=== PATIENT | female | born 1995 | race African-American/Black ===

== ENCOUNTER 2016-04-12 04:34 | Emergency (ER) ==
[2016-04-12 04:48] VITALS: BP 116/70; TEMP 97.5; BMI 23.6
--- NOTE | 2016-04-12 05:08 | ED.PDOC ---
General ED Provider: Dr. AVIS COHEN Chief Complaint: Rectal Pain Stated Complaint: c/o rectal pain, has h/o hemorrhoids. bleeds some time, Time Seen by Physician: 05:07 Mode of Arrival: Walk-In Information Source: Patient Primary Care Provider: MYLENE PIEDRA Nursing and Triage Documentation Reviewed and Agree: Yes GI Complaint Exam - Rectal Complaint/Exam Patient Complains of: Reports: Rectal pain Symptoms Are: Still present Timing: Constant Episodes Lasting: Hours Initial Severity: Moderate Current Severity: Moderate Location: Reports: Rectal Character: Reports: Dull Aggravating: Reports: Bowel movement, Sitting Alleviating: Reports: None Associated Signs and Symptoms: Reports: Blood-streaked stool. Denies: Rectal bleeding, Black tarry stool, Bright red blood w/ stool, Blood without stool Related History: Reports: Similar episode Related Surgical History: Reports: None Rectal Exam: Present: External hemorrhoids, Tenderness Differential Diagnoses: Hemorrhoids Review of Systems - Review Of Systems Constitutional: Reports: No symptoms Eyes: Reports: No symptoms Ears, Nose, Mouth, Throat: Reports: No symptoms Respiratory: Reports: No symptoms Cardiac: Reports: No symptoms GI: Reports: Rectal bleeding : Reports: No symptoms Musculoskeletal: Reports: No symptoms Skin: Reports: No symptoms Neurological: Reports: No symptoms Endocrine: Reports: No symptoms Hematologic/Lymphatic: Reports: No symptoms All Other Systems: Reviewed and Negative Past Medical History - Past Medical History Previously Healthy: Yes Endocrine: Reports: None Cardiovascular: Reports: None Respiratory: Reports: None Hematological: Reports: None Gastrointestinal: Reports: None Genitourinary: Reports: None Neuro/Psych: Reports: None Musculoskeletal: Reports: None Cancer: Reports: None Last Menstrual Period: 04/05/16 - Surgical History General Surgical History: Reports: Unknown - Family History Family History: Reports: Unknown - Social History Smoking Status: Current every day smoker Smoking Cessation Counseling Time: > 3 min - 10 min Hx Substance Use: No Alcohol Screening: None - Immunizations Tetanus Shot up to Date: Yes Physical Exam - Physical Exam Appearance: Well-appearing, No pain distress, Well-nourished Eyes: MARIO, EOMI, Conjunctiva clear ENT: Ears normal, Nose normal, Oropharynx normal Respiratory: Airway patent, Breath sounds clear, Breath sounds equal, Respirations nonlabored Cardiovascular: RRR, Pulses normal, No rub, No murmur GI/: Soft, Nontender, No masses, Bowel sounds normal, No Organomegaly Musculoskeletal: Normal strength, ROM intact, No edema, No calf tenderness Skin: Warm, Dry, Normal color Neurological: Sensation intact, Motor intact, Reflexes intact, Cranial nerves intact, Alert, Oriented Psychiatric: Affect appropriate, Mood appropriate Critical Care Note - Critical Care Note Total Time (mins): 0 Course - Course Vital Signs: Temp Pulse Resp BP Pulse Ox 04/12/16 04:35 97.5 F L 91 H 20 116/70 97 Departure - Departure Time of Disposition: 05:13 Disposition: HOME SELF-CARE Discharge Problem: Hemorrhoids Qualifiers: Hemorrhoid type: first degree Qualifier Code: (K64.0) First degree hemorrhoids Instructions: Hemorrhoids (ED) Condition: Stable Pt referred to PMD for follow-up: Yes Additional Instructions: REST INCREASE HYDRATION IF THE PAIN AND SWELLING GETS WORSE NEEDS TO COME BACK. Prescriptions: Cephalexin [Keflex] 500 mg PO Q12HR #20 capsule Hydrocortisone [Anusol-Hc] 30 gm RC TID #20 cream..g. Allergies/Adverse Reactions: Allergies Penicillins Adverse Reaction (Verified 04/12/16 04:45) Home Medications: Ambulatory Orders Cephalexin [Keflex] 500 mg PO Q12HR #20 capsule 04/12/16 Hydrocortisone [Anusol-Hc] 30 gm RC TID #20 cream..g. 04/12/16 Disposition Discussed With: Patient, Family
[2016-04-12] MEDS ORDERED: TORADOL IM STA (05:14)
== END 2016-04-12 05:40 | disposition home or self-care (01) ==
LOC: ED 04:34
DX: K64.0 First degree hemorrhoids (principal); F17.210 Nicotine dependence, cigarettes, uncomplicated
CPT/HCPCS: 96372; 99282

== ENCOUNTER 2018-03-18 12:50 | Emergency (ER) | payer OTHER ==
[2018-03-18 13:05] VITALS: BP 121/69; TEMP 98; BMI 22.8
[2018-03-18 15:40] LABS: URINE PREGNANCY TEST NEGATIVE (NEGATIVE)
--- NOTE | 2018-03-18 16:11 | US ---
EXAM: Bilateral lower extremity venous Doppler History: Bilateral lower extremity pain and edema. Technique: Multiple sonographic images through the bilateral lower extremities were obtained. Color duplex Doppler was used to interrogate vascular flow. Findings: The bilateral common femoral, greater saphenous, profunda, superficial femoral, popliteal, peroneal, posterior tibial and anterior tibial veins demonstrate spontaneous flow with normal compression and n ormal augmentation. Incidental benign left inguinal lymph node with fatty hilum. Impression: No sonographic evidence for deep venous thrombosis
--- NOTE | 2018-03-18 16:26 | CT ---
EXAM: CT of the lumbar spine without contrast History: Lower back pain and bilateral leg cramping. Technique: Multiplanar CT images through the lumbar spine were obtained without the administration o f IV contrast Findings: No acute fracture or subluxation of the lumbar spine. Disc space heights are preserved. Bony spinal canal is not compromised. No significant bony neural foraminal narrowing. Impression: Unremarkable CT of the lumbar spine
--- NOTE | 2018-03-18 17:05 | ED.PDOC ---
General ED Provider: Dr. CAMILO FITZPATRICK Chief Complaint: Non-specific Complaint Stated Complaint: BILATERAL LEG PAIN Time Seen by Physician: 13:00 Information Source: Patient Exam Limitations: No limitations Primary Care Provider: MYLENE PIEDRA Nursing and Triage Documentation Reviewed and Agree: Yes Does patient meet sepsis criteria?: No System Inflammatory Response Syndrome: Not Applicable Sepsis Protocol: For patient's 13 years and over: Temp is 96.8 and below OR 101 and greater Pulse >90 BPM Resp >20/minute Acutely Altered Mental Status Are patient's symptoms suggestive of a new infection, such as: -Pneumonia -Skin, Soft Tissue -Endocarditis -UTI -Bone, Joint Infection -Implantable Device -Acute Abdominal Infection -Wound Infection -Meningitis -Blood Stream Catheter Infection -Unknown Musculoskeletal Complaint Exam - Lower Extremity Complaint/Exam Location of Pain: Reports: Right, Left, Leg Mechanism of Injury: Reports: No known trauma Onset/Duration: 1 DAY Symptoms Are: Still present Onset of Pain: Reports: Immediate Initial Severity: Mild Current Severity: Mild Location: Reports: Discrete Character: Reports: Aching Alleviating: Reports: Rest Aggravating: Reports: Movement Able to Bear Weight: Yes Associated Signs and Symptoms: Denies: Swelling, Redness, Bruising, Fever, Weakness, Numbness, Tingling DVT Risk Factors: Reports: None Septic Arthritis Risk Factors: Reports: None Related Surgical History: Reports: None Lower Extremity Findings: Absent: Swelling, Ecchymosis, Abnormal contour, Rotation, Ligamentous instability, Laceration, Erythema, [place] Bundle Intact Distal to Injury: No Differential Diagnoses: DVT, Strain, Sprain Review of Systems - Review Of Systems Constitutional: Reports: No symptoms Eyes: Reports: No symptoms Ears, Nose, Mouth, Throat: Reports: No symptoms Respiratory: Reports: No symptoms Cardiac: Reports: No symptoms GI: Reports: No symptoms : Reports: No symptoms Musculoskeletal: Reports: Other (LEG PAIN) Skin: Reports: No symptoms Neurological: Reports: No symptoms Endocrine: Reports: No symptoms Hematologic/Lymphatic: Reports: No symptoms All Other Systems: Reviewed and Negative Past Medical History - Past Medical History Previously Healthy: Yes Endocrine: Reports: None Cardiovascular: Reports: None Respiratory: Reports: None Hematological: Reports: None Gastrointestinal: Reports: None Genitourinary: Reports: None Neuro/Psych: Reports: None Musculoskeletal: Reports: None Cancer: Reports: None Last Menstrual Period: 03/07-03/11 - Surgical History General Surgical History: Reports: Unknown - Family History Family History: Reports: Unknown - Social History Smoking Status: Current every day smoker, Light tobacco smoker Hx Substance Use: No Alcohol Screening: None Physical Exam - Physical Exam Appearance: Well-appearing, No pain distress, Well-nourished Eyes: MARIO, EOMI, Conjunctiva clear ENT: Ears normal, Nose normal, Oropharynx normal Respiratory: Airway patent, Breath sounds clear, Breath sounds equal, Respirations nonlabored Cardiovascular: RRR, Pulses normal, No rub, No murmur GI/: Soft, Nontender, No masses, Bowel sounds normal, No Organomegaly Musculoskeletal: Normal strength, ROM intact, No edema, No calf tenderness Skin: Warm, Dry, Normal color Neurological: Sensation intact, Motor intact, Reflexes intact, Cranial nerves intact, Alert, Oriented Psychiatric: Affect appropriate, Mood appropriate Interpretation - Radiology Interpretation Radiology Interpretation By: Radiologist Radiology Results: No acute changes Re-Evaluation - Re-Evaluation Time of Re-Evaluation: 16:30 Status: Improved Vital Signs Stable: Yes Pain Level: 0 Appearance: NAD Lungs: Clear Skin: Warm and Dry Neuro: Alert and Oriented X3 CV: RRR Critical Care Note - Critical Care Note Total Time (mins): 0 Course - Course Hematology/Chemistry: 03/18/18 15:32 03/18/18 15:32 Orders, Labs, Meds: Lab Review 03/18/18 03/18/18 03/18/18 15:32 15:32 15:34 WBC 10.46 H RBC 3.89 L Hgb 11.9 L Hct 36.6 L MCV 94.1 MCH 30.6 MCHC 32.5 RDW Coeff of Ron 12.9 Plt Count 413 Immature Gran % (Auto) 0.7 Neut % (Auto) 72.9 Lymph % (Auto) 20.2 [place] % (Auto) 5.2 Eos % (Auto) 0.7 Baso % (Auto) 0.3 Immature Gran # (Auto) 0.1 Neut # (Auto) 7.6 H Lymph # (Auto) 2.1 [place] # (Auto) 0.5 Eos # (Auto) 0.1 Baso # (Auto) 0.0 Sodium 136.4 Potassium 4.23 Chloride 101.9 Carbon Dioxide 28.8 Anion Gap 9.93 BUN 8.4 Creatinine 0.62 Estimated GFR (MDRD) 145.00 BUN/Creatinine Ratio 13.54 Glucose 94.0 Calcium 9.34 Total Bilirubin 0.38 AST 20.0 ALT 12.1 Alkaline Phosphatase 89.4 Total Protein 8.38 H Albumin 4.19 Globulin 4.19 Albumin/Globulin Ratio 1.00 Urine Test Negative Orders Category Date Time Status CBC W/ AUTO DIFF Stat LAB 03/18/18 15:32 Completed COMPREHENSIVE METABOLIC PANEL Stat LAB 03/18/18 15:32 Completed URINE Stat LAB 03/18/18 15:[address] LUMBAR SPINE W/O CONTRAST Stat RADS 03/18/18 15:11 Completed U/S VENOUS SCAN STEFAN LEGS Stat RADS 03/18/18 15:10 Completed Vital Signs: Temp Pulse Resp BP Pulse Ox 03/18/18 12:54 98.0 F 71 20 121/69 98 Departure - Departure Time of Disposition: 17:06 Disposition: HOME SELF-CARE Discharge Problem: Leg pain, bilateral Instructions: Leg Pain (ED) Condition: Good Pt referred to PMD for follow-up: Yes IPMP verified?: No Additional Instructions: Follow up with your family dr as soon as possible You do not have a blood clot on ultrasound today Allergies/Adverse Reactions: Allergies Penicillins Adverse Reaction (Verified 03/18/18 13:03) Home Medications: Ambulatory Orders 1 [No Reported Medications] 03/18/18
== END 2018-03-18 16:39 | disposition home or self-care (01) ==
LOC: ED 12:50
DX: M79.605 Pain in left leg (principal); M79.604 Pain in right leg; F17.210 Nicotine dependence, cigarettes, uncomplicated
CPT/HCPCS: 36415; 80053; 81025; 85025; 99283